=== PATIENT | male | born 1970 | race Two or more races ===

== ENCOUNTER 2024-03-29 15:16 | Emergency (ER) | payer OTHER, SELFPAY ==
[2024-03-29 15:34] VITALS: BP 187/104; BP 194/134; PULSE 70; RESP 18; TEMP 36.7; O2SAT 95; BMI 31.1
--- NOTE | 2024-03-29 15:34 | XR_ITS ---
Examination: PA lateral chest 2 views TECHNIQUE: Upright PA lateral chest 2 views Exam date and time: 01/16/2025 6 1540 hours INDICATIONS: Coughing fever beginning 3 days ago normal heart size No pneumonia or pulmonary edema Intact osseous structures IMPRESSION: No pneumonia identified
--- NOTE | 2024-03-29 15:35 | EDNOTE_ITS ---
Upper Respiratory Inf. RME/HPI General Chief Complaint: Flu Like Symptoms Stated Complaint: COUGH, CONGESTION, DAMON, BODYACHES Time Seen by Provider: 03/29/24 15:23 Source: patient Arrival date/time: 03/29/24 15:16 53-year-old male with a history of hypertension presents to the emergency room with a chief complaint of cough, congestion, headache, body aches x 3 days. Mode of arrival: ambulatory Limitations: no limitations Related Data Previous Rx's ?Medication ?Instructions ?Recorded chlorthalidone 25 mg tablet 25 mg PO QDAY #30 tabs 12/06/22 Allergies Allergy/AdvReac Type Severity Reaction Status Date / Time No Known Allergies Allergy Verified 12/05/22 22:33 Review of Systems Review of Systems Systems Reviewed: All systems reviewed, normal except as documented Constitutional Constitutional: Reports system reviewed and no additional complaints, except as documented, Denies fatigue, Denies fever(s), Reports headache(s) and Denies weakness Eyes Eyes: Reports system reviewed and no additional complaints, except as documented, Denies blurry vision and Denies change in vision ENT Ears, Nose, Mouth, and Throat: Reports system reviewed and no additional complaints, except as documented, Denies otalgia, Reports headache(s), Reports nasal congestion, Denies throat swelling and Denies vertigo Cardiovascular Cardiovascular: Reports system reviewed and no additional complaints, except as documented, Denies chest pain, Denies dyspnea and Denies dyspnea on exertion Respiratory Respiratory: Reports system reviewed and no additional complaints, except as documented, Reports chest congestion, Reports cough, Denies dyspnea, Denies dyspnea on exertion and Denies wheezing Gastrointestinal Gastrointestinal: Reports system reviewed and no additional complaints, except as documented, Denies abdominal pain, Denies cramping, Denies nausea and Denies vomiting Genitourinary Genitourinary: Reports system reviewed and no additional complaints, except as documented, Denies dysuria and Denies hematuria Musculoskeletal Musculoskeletal: Reports system reviewed and no additional complaints, except as documented and Denies back pain Integumentary/Breasts Skin/Breast: Reports system reviewed and no additional complaints, except as documented and Denies wounds Neurologic Neurologic: Reports system reviewed and no additional complaints, except as documented, Denies confusion, Reports headache(s), Denies lack of coordination, Denies vertigo and Denies weakness Psychiatric Psychiatric: Reports system reviewed and no additional complaints, except as documented, Denies anxiety, Denies confusion, Denies depression, Denies paranoia, Denies suicidal ideation and Denies tactile hallucinations Endocrine Endocrine: Reports system reviewed and no additional complaints, except as documented and Denies fatigue Hematologic/Lymphatic Hematologic/Lymphatic: Reports system reviewed and no additional complaints, except as documented and Denies lymphadenopathy Allergic/Immunologic Allergic/Immunologic: Reports system reviewed and no additional complaints, except as documented, Denies throat swelling, Denies urticaria and Denies wheezing Past Medical History Past Medical History NEUROLOGIC: Negative Neurological Disorders CARDIAC: Positive Hypertension HEMATOLOGIC: Negative Blood Disorders Social History SMOKING STATUS: Never smoker SUBSTANCE USE: does not use ED Exam General Limitations: Present no limitations General appearance: Present alert and in no apparent distress Head Head exam: Present atraumatic Eye Eye exam: Present normal appearance, PERRL and EOMI ENT ENT exam: Present normal exam, normal oropharynx and mucous membranes moist Neck Neck exam: Present normal inspection, full ROM and trachea midline Chest Chest inspection: Present normal inspection and symmetric chest wall rise Respiratory Respiratory exam: Present normal lung sounds bilaterally; Absent respiratory distress, wheezes, stridor, accessory muscle use or prolonged expiratory phase Cardiovascular Cardiovascular exam: Present regular rate, normal rhythm and normal heart sounds Abdominal Exam Abdominal exam: Present soft and normal bowel sounds Extremities Exam Extremities exam: Present normal inspection and full ROM Back Exam Back exam: Present normal inspection and full ROM Neurological Exam Neurological exam: Present alert, oriented X3 and CN II-XII intact Psychiatric Psychiatric exam: Present normal affect and normal mood Skin Skin exam: Present warm, dry, intact and normal color Course Quality Measures none Orders Category Date Time Status Bedside COVID-19 Antigen Test NOW Care 03/29/24 15:34 Active Bedside Influenza A&B Antigen Test NOW Care 03/29/24 15:34 Completed XR chest 2V Stat Exams 03/29/24 15:34 Completed Acetaminophen Tab [Tylenol ES Tab] Med 03/29/24 15:35 Discontinued 1,000 mg PO X1 ONE cloNIDine HCL [Catapres] Med 03/29/24 15:34 Discontinued 0.1 mg PO X1 ONE Vital Signs Vital signs: Vital Signs Temperature 98.1 F 03/29/24 15:34 Pulse Rate 70 03/29/24 15:34 Respiratory Rate 18 03/29/24 15:34 Blood Pressure 187/104 H 03/29/24 15:34 Pulse Oximetry (%) 95 03/29/24 15:34 Oxygen Delivery Method Room Air 03/29/24 15:34 O2 saturation within normal limits Upper Respiratory Infection MDM Narrative MDM Narrative:: 53-year-old male with a history of hypertension presents to the emergency room with a chief complaint of cough, congestion, headache, body aches x 3 days. Clinically the patient appears nontoxic and in no apparent distress. Physical examination shows clear bilateral lung sounds with no wheezing stridor or any respiratory distress. Influenza and COVID-19 results were negative. Chest x- ray was negative for any pneumonic infiltrates. Patient was discharged and educated to follow-up with primary care provider and return to the emergency room for any evidence of worsening signs or symptoms. Patient blood pressure was elevated during his stay. Medication was given and blood pressure significantly dropped. Patient data External records reviewed:: [facility] previous records Clinical information provided by:: patient Social determinants that could affect healthcare access:: none Patient has the following chronic illnesses:: Hypertension How is presenting disease/condition affected by chronic disease/condition?: exacerbated by Evaluation data The following diagnostics were reviewed and interpreted by me:: lab results and radiology exam(s) Lab and/or radiology exams considered but not ordered:: Labs and radiology exams considered and ordered Interpretation Summary: Chest x-ray-no pneumonic infiltrates Medications / Prescriptions Medications or Prescriptions considered but not ordered:: Medication given Medication administrations:: Medication Administration History Discontinued Medications Acetaminophen (Acetaminophen 500 Mg Tablet) 1,000 mg PO X1 ONE Stop: 03/29/24 15:36 Last Admin: 03/29/24 15:56 Dose: 1,000 mg Documented By: Clonidine (Clonidine Hcl 0.1 Mg Tablet) 0.1 mg PO X1 ONE Stop: 03/29/24 15:35 Last Admin: 03/29/24 15:55 Dose: 0.1 mg Documented By: Medication given Consultations Consultation(s) initiated? (list below): No Diagnosis Upper Respiratory Differential Diagnosis: upper respiratory infection, s inusitis, viral infection, bronchitis, influenza and pharyngitis Most likely diagnosis given after review of the tests above:: Upper respiratory infection Admission Indicated Admission indicated?: not indicated Admission Request Was there a request for admission?: No Disposition Plan Disposition Plan: Discharge Discharge Attestation Discharge Attestation: The patient and all family members were given an opportunity to ask questions and understood the discharge instructions. Discharge instructions specifically effects, indications for sooner follow up or return to the emergency department, and the expected course of current diagnosis. Patient condition: Stable Discharge Plan Plan Patient Disposition: HOME (Self Care) Disposition Comment: Stable Prescriptions/Referrals Prescriptions/Med Rec: No Action chlorthalidone 25 mg tablet 25 mg PO QDAY Qty: 30 0RF Referrals: No Primary/Family,Physician [Primary Care Provider] - In 1 week Problem List Clinical Impression: Upper respiratory infection Patient/Caregiver Discharge Instructions Education Materials: ED URI, Viral, No Abx (Adult) Additional Instructions: Please follow-up with your primary care provider in the next 24 to 48 hours. Your COVID-19 and influenza were negative. X-ray was completed and was negative for any pneumonic infiltrates. Your blood pressure was elevated during your initial visit. Please follow-up with your primary care provider for further management. 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
[2024-03-29 15:55] VITALS: BP 187/104; PULSE 70
[2024-03-29] MEDS: cloNIDine HCL 0.1 MG TABLET PO (15:55)
[2024-03-29] MEDS: ACETAMINOPHEN 500 MG TABLET 1000 MG PO (15:56)
[2024-03-29 18:03] VITALS: BP 169/91
== END 2024-03-29 18:04 | disposition home or self-care (01) ==
PROVIDERS: Emergency Provider Emergency Medicine
DX: J06.9 Acute upper respiratory infection, unspecified (principal)
CPT/HCPCS: 71046; 87400; 87811; 99283; A9270

== ENCOUNTER → 2024-04-20 | Outpatient (CLI) | payer OTHER, SELFPAY ==
--- NOTE | 2024-04-20 17:05 | XR_ITS ---
Examination: Hand, left 3 views Technique: Hand AP, oblique, lateral 3 views Date and time of exam: April 12, 2024 1714 hours INDICATIONS: Hand pain beginning one month ago. FINDINGS: Mild osteopenia No fracture. No cortical bone destruction No erosive arthritis Mild narrowing radiocarpal joint IMPRESSION: No fracture No erosive or other significant arthritic change
--- NOTE | 2024-04-20 17:05 | XR_ITS ---
Examination: Wrist, left 3 views Technique: Wrist AP, oblique, lateral 3 views Date and time of exam: April 12, 2024 1714 hours INDICATIONS: Wrist pain beginning one month ago. FINDINGS: Moderate osteopenia No fracture or dislocation No avascular necrosis Mild narrowing radiocarpal and intercarpal joints IMPRESSION: No fracture No erosive or other significant arthritic change
== END | disposition home or self-care (01) ==
LOC: CDIM 14:52 → SDIM 16:49
DX: M25.532 Pain in left wrist (principal); M79.642 Pain in left hand
CPT/HCPCS: 73110; 73130

== ENCOUNTER 2024-10-18 00:36 | Emergency (ER) | payer OTHER, SELFPAY ==
[2024-10-18 00:37] VITALS: BMI 33.6
[2024-10-18 00:42] VITALS: BP 183/136; BP 185/135; PULSE 105; RESP 19; TEMP 37.4; O2SAT 96
--- NOTE | 2024-10-18 00:43 | EKG_ITS ---
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
[2024-10-18 02:03] LABS: Basophils # (Auto) 0.0 Thou/mm3 (0.0-0.2); Basophils % (Auto) 0 % (0-2.5); Eosinophils # (Auto) 0.1 Thou/mm3 (0.0-0.5); Eosinophils % (Auto) 1 % (0-10); Hematocrit 44.9 % (41.0-53.0); Hemoglobin 15.3 g/dL (13.5-16.0); Immature Granulocytes Auto 0.05 Thou/mm3 (0.00-0.00); Lymphocytes # (Auto) 1.0 Thou/mm3 (1.0-4.8); Lymphocytes % (Auto) 10 % (10-50); Mean Corpuscular HGB Conc 34.1 g/dl (31.0-37.0); Mean Corpuscular Hemoglobin 28.7 pg (25.0-35.0); Mean Corpuscular Volume 84 fL (80-100); Monocytes # (Auto) 0.5 Thou/mm3 (0.0-0.8); Monocytes % (Auto) 5 % (0-12); Neutrophils # (Auto) 8.6 Thou/mm3 (1.8-7.7); Neutrophils % (Auto) 84 % (37-80); Nucleated Red Blood Cell # 0.00 Thou/mm3 (0.00-0.00); Nucleated Red Blood Cell % 0 /100 WBC (0); Platelet Count 184 Thou/mm3 (140-440); RDW Standard Deviation 41.6 fL (35.1-43.9); Red Blood Count 5.33 Miln/mm3 (4.50-5.90); White Blood Count 10.2 Thou/mm3 (3.8-10.6)
[2024-10-18 02:22] LABS: B-Type Natriuretic Peptide < 20 pg/mL (0-100)
[2024-10-18 02:22] LABS: Amphetamine/Methamp Scrn,U Negative (Negative); Barbiturate Screen,Urine Negative (Negative); Benzodiazepines Screen,Urine Negative (Negative); Benzoylecgonine Screen, Ur Negative (Negative); Fentanyl Screen,Urine Negative (Negative); Opiate Screen,Urine Negative (Negative); THC Screen,Urine Negative (Negative)
[2024-10-18 02:23] LABS: Alanine Aminotransferase 71 U/L (10-49); Albumin, Serum 4.2 gm/dL (3.5-5.0); Albumin/Globulin Ratio 1.1 (1.2-2.2); Alkaline Phosphatase 123 U/L (46-116); Anion Gap 10 (7-16); Aspartate Amino Transferase 85 U/L (0-34); BUN/Creatinine Ratio 11 Ratio (12-20); Bilirubin,Total 1.2 mg/dL (0.3-1.2); Blood Urea Nitrogen 11 mg/dL (9-23); Calcium 8.5 mg/dL (8.3-10.6); Calcium (Corrected) 8.5 mg/dL (8.5-10.1); Carbon Dioxide 23.5 mMol/L (20.0-31.0); Chloride 105 mMol/L (98-107); Creatinine (Component) 1.0 mg/dL (0.6-1.3); Estimated Creatinine Clearance 94.0 mL/min (>60); Globulin 3.7 gm/dL (2.3-3.5); Glucose 180 mg/dL (74-106); Magnesium 1.4 mg/dL (1.6-2.6); Osmolality,Calculated 280 (275-295); Potassium 3.5 mMol/L (3.4-5.1); Sodium 138 mMol/L (136-145); Total Protein 7.9 gm/dL (5.7-8.2); Troponin I < 0.020 ng/mL (0.0-0.045); eGFR > 60 See Note
[2024-10-18 03:13] VITALS: BP 165/120; PULSE 87; RESP 18; O2SAT 96
--- NOTE | 2024-10-18 04:57 | PD.EDRECHK ---
ED Recheck Abnl Lab Rx-RME/HPI General Chief Complaint: General Adult/Misc Complain Stated Complaint: HIGH BP Arrival date/time: 10/18/24 00:36 RME / HPI RME / HPI narrative: DR. EGMMA FLORENCE ED EVALUATION: 53 y/o male with Hx of HTN presents to ED c/o elevated blood pressure x just RE RECORDING MIXER. Patient states he has been under a lot of stress, including his sick mother passing away just RE RECORDING MIXER. Patient takes Valsartan 160 mg for management of BP, but did not take it today. He also admits to having a highly caffeinated coffee beverage earlier yesterday. No other concerns or complaints expressed at this time. Related Data Previous Rx's ?Medication ?Instructions ?Recorded chlorthalidone 25 mg tablet 25 mg PO QDAY #30 tabs 12/06/22 Allergies Allergy/AdvReac Type Severity Reaction Status Date / Time No Known Allergies Allergy Verified 10/18/24 00:37 Review of Systems Review of Systems Systems Reviewed: All systems reviewed, normal except as documented Past Medical History Past Medical History CARDIAC: Positive Hypertension ED Exam Narrative Physical exam: Generally the patient is alert and in no obvious distress heart is regular rate and rhythm lungs clear to auscultation equal bilaterally abdomen soft bowel sounds present nondistended nontender neurologic exam no focal motor or sensory deficits cranial nerves II through XII grossly intact. No ataxia. Course Quality Measures none Orders Category Date Time Status EKG (ED ONLY) *Do not use* NOW Care 10/18/24 00:43 Completed EKG (ED Only) Stat Exams 10/18/24 00:43 Draft B-Type Natriuretic Peptide Stat Lab 10/18/24 01:25 Completed CBC Stat Lab 10/18/24 01:25 Completed Comprehensive Metabolic Panel Stat Lab 10/18/24 01:25 Completed Drug Screen,Urine Stat Lab 10/18/24 01:55 Completed Magnesium Stat Lab 10/18/24 01:25 Completed Troponin I Stat Lab 10/18/24 01:25 Completed Vital Signs Vital signs: Vital Signs Temperature 99.4 F 10/18/24 00:42 Pulse Rate 105 H 10/18/24 00:42 Respiratory Rate 19 10/18/24 00:42 Blood Pressure 183/136 H 10/18/24 00:42 Pulse Oximetry (%) 96 10/18/24 00:42 Oxygen Delivery Method Room Air 10/18/24 00:42 Recheck / Abnormal Lab / Rx MDM Narrative MDM Narrative:: Scribe Attestation: I, Jane Melgar, am scribing for and in the presence of Dr. Amaya. Provider Notation: Although this document has been carefully reviewed, there may still be some phonetic and other typographical errors.? These errors are purely grammatical due to imperfections in the software program and should not be construed in any way to? compromise the substance of the patient's medical care during this visit. I interpreted all labs. There was no significant abnormality. Blood pressure was 166/101. The patient is currently grieving because his mother last night. He has been under a great deal of stress. He takes losartan and has been rather noncompliant with the medication. It was stressed to the patient the need to take his losartan as prescribed. Follow-up with his doctor. Return to ER as needed or if condition worsens. Patient denies any headache chest pain or shortness of breath. Patient data External records reviewed:: [facility] previous records (Reviewed prior ED records from 03/29/24. Patient was seen for Upper respiratory infection.) Clinical information provided by:: patient Social determinants that could affect healthcare access:: none Patient has the following chronic illnesses:: HTN How is presenting disease/condition affected by chronic disease/condition?: exacerbated by Evaluation data The following diagnostics were reviewed and interpreted by me:: lab results and EKG tracing(s) Lab and/or radiology exams considered but not ordered:: None Interpretation Summary: See MDM above. Medications / Prescriptions Medications or Prescriptions considered but not ordered:: None Medication administrations:: See above if any. Consultations Consultation(s) initiated? (list below): No Diagnosis Recheck Differential Diagnosis: other (Hypertensive urgency vs emergency, Anxiety disorder, Electrolyte abnormality, [place]) Most likely diagnosis given after review of the tests above:: None Admission Indicated Admission indicated?: not indicated Explain why admission is indicated or not indicated:: Patient does not meet admission criteria. Admission Request Was there a request for admission?: No Disposition Plan Disposition Plan: Discharge Discharge Attestation Discharge Attestation: The patient and all family members were given an opportunity to ask questions and understood the discharge instructions. Discharge instructions specifically effects, indications for sooner follow up or return to the emergency department, and the expected course of current diagnosis. Patient condition: Stable Discharge Plan Plan Patient Disposition: HOME (Self Care) Prescriptions/Referrals Prescriptions/Med Rec: No Action chlorthalidone 25 mg tablet 25 mg PO QDAY Qty: 30 0RF Referrals: No Primary/Family,Physician [Primary Care Provider] - In 1 week Problem List Clinical Impression: Poorly-controlled hypertension Patient/Caregiver Discharge Instructions Additional Instructions: Take your medication as prescribed. Follow-up with your doctor. Return to ER as needed or if condition worsens. Print Language: Khmer Stand Alone Forms: Beena Award Info., Patient Portal Info Letter
[2024-10-18 05:27] VITALS: BP 157/101; PULSE 78; RESP 18; TEMP 36.7
== END 2024-10-18 05:28 | disposition home or self-care (01) ==
PROVIDERS: Emergency Provider Emergency Medicine
DX: I10 Essential (primary) hypertension (principal); R00.0 Tachycardia, unspecified
CPT/HCPCS: 36415; 80053; 80307; 83735; 83880; 84484; 85025; 93005; 99283